=== PATIENT | male | born 1995 ===

== ENCOUNTER 2018-10-24 12:31 | Emergency (ER) | payer OTHER ==
--- NOTE | 2018-10-24 12:41 | ER Report ---
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 He was returning from a trip ride when his horse "completely went nuts." He was thrown off the horse and landed onto his left side and his head. He had a brief loss of consciousness which lasted 1-2 minutes per his fiance who also works at the ranch. There is a question as to whether or not he had seizure activity. No blood thinners. No midline neck pain or focal neuro deficits. Upon arrival he complained of a headache and nausea. No chest pain or abdominal pain. No medical problems. Able to ambulate. Remainder of the 14 system rev: Yes Home Meds Active Scripts Ondansetron Hcl (ZOFRAN) 4 Mg Tablet, 4 MG PO Q6H for 5 Days, #14 TAB Prov:DARIAN FARR MD 10/24/18 Reviewed Nurses Notes: Yes Smoking Status: Never Smoker Constitutional Vital Sign - Last 24 Hours 10/24/18 10/24/18 10/24/18 10/24/18 13:00 13:03 14:00 14:30 Temp 98.9 Pulse 78 103 62 Resp 20 B/P (MAP) 111/72 (85) 111/72 91/41 (58) 86/41 (56) Pulse Ox 86 93 93 98 O2 Delivery Room Air 10/24/18 10/24/18 15:00 15:30 Pulse 84 B/P (MAP) 98/48 (65) 108/61 (77) Pulse Ox 89 Physical Exam General Appearance: The patient is alert, has no immediate need for airway protection and no current signs of toxicity. Head: NCAT Eyes: Pupils equal and round no injection. Respiratory: Chest is non tender, lungs are clear to auscultation. Cardiac: regular rate and rhythm Gastrointestinal: Abdomen is soft and non tender, no masses, bowel sounds normal. Musculoskeletal: No TTP of the spine, back, flank Neck: Neck is supple and non tender. Extremities have full range of motion and are non tender. Skin: No rashes or lesions. Medical Decision Making Data Points Result Diagram: 10/24/18 1244 10/24/18 1244 Laboratory Hematology Test 10/24/18 12:44 10/24/18 13:24 Red Blood Count 5.53 M/uL (4.00-5.60) Mean Corpuscular Volume 92.4 fL (80.0-96.0) Mean Corpuscular Hemoglobin 31.5 pg (26.0-33.0) Mean Corpuscular Hemoglobin Concent 34.1 g/dL (32.0-36.0) Red Cell Distribution Width 12.5 % (11.5-14.5) Mean Platelet Volume 8.1 fL (7.2-11.1) Neutrophils (%) (Auto) 75.8 % (39.4-72.5) Lymphocytes (%) (Auto) 17.4 % (17.6-49.6) Monocytes (%) (Auto) 5.6 % (4.1-12.4) Eosinophils (%) (Auto) 0.7 % (0.4-6.7) Basophils (%) (Auto) 0.5 % (0.3-1.4) Nucleated RBC Relative Count (auto) 0.6 /100WBC Neutrophils # (Auto) 6.0 K/uL (2.0-7.4) Lymphocytes # (Auto) 1.4 K/uL (1.3-3.6) Monocytes # (Auto) 0.4 K/uL (0.3-1.0) Eosinophils # (Auto) 0.1 K/uL (0.0-0.5) Basophils # (Auto) 0.0 K/uL (0.0-0.1) Nucleated RBC Absolute Count (auto) 0.05 K/uL Sodium Level 143 mmol/L (137-145) Potassium Level 4.1 mmol/L (3.5-5.0) Chloride Level 109 mmol/L (98-107) Carbon Dioxide Level 23 mmol/L (22-30) Blood Urea Nitrogen 15 mg/dl (9-21) Creatinine 0.90 mg/dl (0.66-1.25) Glomerular Filtration Rate Calc > 60.0 Random Glucose 97 mg/dl (75-110) Calcium Level 9.9 mg/dl (8.4-10.2) Total Bilirubin 0.8 mg/dl (0.2-1.3) Aspartate Amino Transf (AST/SGOT) 31 U/L (0-35) Alanine Aminotransferase (ALT/SGPT) 59 U/L (0-56) Alkaline Phosphatase 104 U/L (0-126) Total Protein 6.6 g/dl (6.3-8.2) Albumin 4.4 g/dl (3.5-5.0) Carboxyhemoglobin 3.9 % (< 5.0) Chemistry Test 10/24/18 12:44 10/24/18 13:24 White Blood Count 7.9 k/uL (4.5-11.0) Red Blood Count 5.53 M/uL (4.00-5.60) Hemoglobin 17.4 g/dL (14.0-18.0) Hematocrit 51.1 % (42.0-52.0) Mean Corpuscular Volume 92.4 fL (80.0-96.0) Mean Corpuscular Hemoglobin 31.5 pg (26.0-33.0) Mean Corpuscular Hemoglobin Concent 34.1 g/dL (32.0-36.0) Red Cell Distribution Width 12.5 % (11.5-14.5) Platelet Count 304 K/uL (150-450) Mean Platelet Volume 8.1 fL (7.2-11.1) Neutrophils (%) (Auto) 75.8 % (39.4-72.5) Lymphocytes (%) (Auto) 17.4 % (17.6-49.6) Monocytes (%) (Auto) 5.6 % (4.1-12.4) Eosinophils (%) (Auto) 0.7 % (0.4-6.7) Basophils (%) (Auto) 0.5 % (0.3-1.4) Nucleated RBC Relative Count (auto) 0.6 /100WBC Neutrophils # (Auto) 6.0 K/uL (2.0-7.4) Lymphocytes # (Auto) 1.4 K/uL (1.3-3.6) Monocytes # (Auto) 0.4 K/uL (0.3-1.0) Eosinophils # (Auto) 0.1 K/uL (0.0-0.5) Basophils # (Auto) 0.0 K/uL (0.0-0.1) Nucleated RBC Absolute Count (auto) 0.05 K/uL Glomerular Filtration Rate Calc > 60.0 Calcium Level 9.9 mg/dl (8.4-10.2) Total Bilirubin 0.8 mg/dl (0.2-1.3) Aspartate Amino Transf (AST/SGOT) 31 U/L (0-35) Alanine Aminotransferase (ALT/SGPT) 59 U/L (0-56) Alkaline Phosphatase 104 U/L (0-126) Total Protein 6.6 g/dl (6.3-8.2) Albumin 4.4 g/dl (3.5-5.0) Carboxyhemoglobin 3.9 % (< 5.0) ED Course/Re-evaluation ED Course No acute injuries on CT of the head or chest x-ray. Normal vitals. Mental status intact. No blood thinners. No focal neuro deficits. No midline C-spine pain. Able to ambulate. See complaining of nausea and headache. History and physical consistent with concussion. He was given IV fluids and antinausea medicine, and now feels improved. I spoke with he and his fianc at length about concussion and concussion precautions. I will give him a work note for the rest of the week. Decision to Disposition Date: Oct 24, 2018 Decision to Disposition Time: 16:10 Depart Departure Latest Vital Signs Vital Signs Date Time Temp Pulse Resp B/P (MAP) Pulse Ox O2 Delivery O2 Flow Rate FiO2 10/24/18 15:30 84 108/61 (77) 89 10/24/18 13:03 98.9 20 Room Air Impression: Primary Impression: Fall from horse Additional Impression: Concussion Condition: Improved Disposition: HOME OR SELF-CARE New Scripts Ondansetron Hcl (ZOFRAN) 4 Mg Tablet 4 MG PO Q6H for 5 Days, #14 TAB Prov: DARIAN FARR MD 10/24/18 Patient Instructions: Concussion (ED) Problem Qualifiers Primary Impression: Fall from horse Encounter type: initial encounter Qualified Codes: V80.010A - Animal-rider injured by fall from or being thrown from horse in noncollision accident, initial encounter Additional Impression: Concussion Encounter type: initial encounter Loss of consciousness presence/duration: with LOC of 30 min or less Qualified Codes: S06.0X1A - Concussion with loss of consciousness of 30 minutes or less, initial encounter DARIAN FARR MD Oct 24, 2018 12:41
[2018-10-24] MEDS ORDERED: ONDANSETRON 4 MG/2 ML VIAL ONE (12:53)
[2018-10-24] MEDS ORDERED: NS(*) 0.9% 1000 ML BAG 1,000 ML IV ONE ×2 (12:55→14:50)
[2018-10-24] MEDS ORDERED: ONDANSETRON 4 MG/2 ML VIAL IVP ONE (12:55)
--- NOTE | 2018-10-24 13:38 | RADIOLOGY IMAGING REPORT ---
FACILITY: [facility] PATIENT NAME: Bakari Jett : 1995 MR: [id number] V: [id number] EXAM DATE: ORDERING PHYSICIAN: DARIAN FARR TECHNOLOGIST: Location: [facility] - [place] Patient: Bakari Jett : 1995 Visit/Account:[id number] Date of Sevice: 10/24/2018 Exam type: CHEST SINGLE AP History: Trauma Comparison: None. Findings: Both lungs are well-expanded and clear. There is no focal infiltrate, pleural effusion or pneumothora x. Heart size is normal. There is some widening of the superior mediastinum which could be projectional. No displaced fractures are seen. IMPRESSION: 1. Apparent widening of the superior mediastinum which could be technical in nature. If there is conc vania for thoracic aortic injury, consider a repeat PA and lateral chest x-ray with optimal technique v ersus a CTA. Report Dictated By: Edouard Santana MD at 10/24/2018 1:29 PM Report E-Signed By: Edouard Santana MD at 10/24/2018 1:31 PM WSN:[id number]
--- NOTE | 2018-10-24 13:59 | RADIOLOGY IMAGING REPORT ---
[place] [facility] [place]: Bakari Jett : 1995 MR: [id number] V: [id number] EXAM DATE: ORDERING PHYSICIAN: DARIAN FARR TECHNOLOGIST: Location: [facility] Patient: Bakari Jett : 1995 Visit/Account:[id number] Date of Sevice: 10/24/2018 EXAMINATION: Head CT without intravenous contrast HISTORY: Bucked off horse. Hit head. Seizure. COMPARISON: None. TECHNIQUE: Contiguous axial images were obtained from the skull base to the vertex without intraven ous contrast. Sagittal and coronal reformatted images are also submitted. One of the following dose optimization techniques was utilized in the performance of this exam: Autom ated exposure control; adjustment of the mA and/or kV according to the patient's size; or use of an i terative reconstruction technique. Specific details can be referenced in the facility's radiology C T exam operational policy. FINDINGS: Brain and intracranial structures: Ventricles, sulci, and cisterns are normal in size. Harley-white m atter differentiation is maintained. No midline shift, acute hemorrhage, acute infarct, or mass. Calvarium / scalp: Negative. No acute fracture. Skull base / visualized face: Negative. Visualized sinuses / orbits: Mild mucosal thickening in the maxillary sinuses. Trace mucosal thicke alla in the ethmoid air cells. IMPRESSION: No acute intracranial abnormality. Report Dictated By: Raudel Alvares MD at 10/24/2018 1:44 PM Report E-Signed By: Raudel Alvares MD at 10/24/2018 1:51 PM WSN:[id number]
[2018-10-24 14:54] LABS: PLATELET COUNT, AUTOMATED 304 K/uL (150-450)
--- NOTE | 2018-10-24 15:18 | RADIOLOGY IMAGING REPORT ---
FACILITY: [facility] - [place] PATIENT NAME: Bakari Jett : 1995 MR: [id number] V: [id number] EXAM DATE: ORDERING PHYSICIAN: DARIAN FARR TECHNOLOGIST: [place] [facility] [place]ari J[place] : 1995 Visit/Account:[id number] Date of Sevice: 10/24/2018 Exam type: CHEST PA LAT History: Question widened mediastinum on prior exam Comparison: Earlier same day. Findings: Both lungs are well-expanded and clear. There is no focal infiltrate, pleural effusion or pneumothora x. Heart size is normal. Superior mediastinum is normal with a normal thoracic shadow. The osseous structures are unremarkable. IMPRESSION: 1. No acute cardiopulmonary disease. Superior mediastinum is normal on the current exam. Report Dictated By: Edouard Santana MD at 10/24/2018 3:10 PM Report E-Signed By: Edouard Santana MD at 10/24/2018 3:11 PM WSN:[id number]
[2018-10-24 15:30] VITALS: BP 108/61
[2018-10-24] MEDS ORDERED: ONDA4TAB97 PO (16:14)
== END 2018-10-24 16:21 | disposition home or self-care (01) ==
LOC: ER 12:43
DX: S06.0X1A Concussion with loss of consciousness of 30 minutes or less, initial encounter (principal); V80.010A Animal-rider injured by fall from or being thrown from horse in noncollision accident, initial encounter
CPT/HCPCS: 36415; 70450; 71045; 71046; 82375; 85025; 96361; 96374; 99284; J7030; 82040; 82247; 82310; 82374; 82435; 82565; 82947; 84075; 84132; 84155; 84295; 84450; 84460; 84520; J2405